=== PATIENT | male | born 2000 | race Caucasian/White ===

== ENCOUNTER 2021-06-25 16:56 | Inpatient (IN) ==
[2021-06-25] MEDS ORDERED: Piperacillin/Tazobac ADVAN 3.375 GM in NS 0.9% 100 ml BAG 100 ML IV ONE (17:07)
[2021-06-25] MEDS ORDERED: Vancomycin 1,000 MG in NS 0.9% 250 ml 250 ML IVPB ONE (17:07)
[2021-06-25] MEDS ORDERED: Ondansetron 4 mg VIAL 2 MG/ML 2 ml VIAL IV PRN (17:46)
[2021-06-25] MEDS ORDERED: Vancomycin per Pharmacy 1 EA NOTE FOLLOW UP SCH (18:00)
[2021-06-25 18:05] LABS: Hematocrit 39 % (42-52); Hemoglobin 13.6 g/dL (14.0-18.0); Mean Corpuscular HGB Conc 35 g/dL (31-36); Mean Corpuscular Hemoglobin 31 pg (27-31); Mean Corpuscular Volume 89 fL (80-94); Mean Platelet Volume 8.2 fL (7.4-10.4); Platelet Count 190 10^3/uL (150-450); Red Blood Count 4.46 10^6 /uL (4.18-5.48); Red Cell Distribution Width 14 % (10-15); White Blood Count 20.4 10^3/uL (3.5-10.8)
[2021-06-25 18:25] LABS: Activated Partial Thrombo Time 31.6 seconds (26.0-38.0); INR 1.5 (0.86-1.15)
[2021-06-25 18:38] LABS: Albumin 3.9 g/dL (3.2-5.2); Albumin/Globulin Ratio 1.1 (1-3); C Reactive Protein 124.7 mg/L (<8.01); Calcium 8.9 mg/dL (8.6-10.3); Globulin 3.4 g/dL (2-4); Potassium 3.4 mmol/L (3.5-5.0); Total Bilirubin 0.9 mg/dL (0.2-1.0); Total Protein 7.3 g/dL (6.4-8.9); eGFR CKD-EPI 131.4 (>60)
[2021-06-25 18:39] LABS: ABS Basophils 0.1 10^3/ul (0-0.2); ABS Lymphocytes 1.4 10^3/ul (1.0-4.8); ABS Monocytes 2.4 10^3/ul (0-0.8); ABS Neutrophils 16.6 10^3/ul (1.5-7.7); Eosinophil % 0.1 %; Lymphocyte % 6.9 %; Macrocytosis 1+; Microcytosis 1+; Toxic Granulation 1+
[2021-06-25 19:13] LABS: TSH Ultra Thyroid Stim Horm 1.28 mcIU/mL (0.34-5.60)
[2021-06-25 19:26] LABS: High Sensitivity Troponin 1 Hr 5 pg/mL (<20)
[2021-06-25 20:10] LABS: HIV 4th Generation Nonreactive (Nonreactive)
[2021-06-25] MEDS: Nicotine GUM 4MG FRUIT FLAVOR PO PRN (20:48)
[2021-06-25] MEDS: Lactated Ringers 1000 ml BAG 1,000 ML IV SCH (21:44)
[2021-06-25] MEDS: KCL 20 MEQ/100 ML IVPREMIX 20 MEQ/100 ML BAG IV SCH (22:18)
[2021-06-26] MEDS: KCL 20 MEQ/100 ML IVPREMIX 20 MEQ/100 ML BAG IV SCH ×2 (00:31→06:31)
[2021-06-26 00:46] LABS: Urine Appearance Clear; Urine Bilirubin Negative (Negative); Urine Blood 2+ (Negative); Urine Color Yellow; Urine Glucose Negative (Negative); Urine Ketones Negative (Negative); Urine Nitrite Negative (Negative); Urine Protein Negative (Negative); Urine Specific Gravity 1.014 (1.002-1.030); Urine Urobilinogen Positive (Negative)
[2021-06-26 01:09] LABS: Urine Bacteria Absent (Absent); Urine Red Blood Cell 3+(>10/hpf) (Absent); Urine White Blood Cell Trace(0-5/hpf) (Absent)
[2021-06-26 03:40] LABS: Hepatitis C Antibody Reactive (Negative)
[2021-06-26] MEDS: Vancomycin 1,250 MG in NS 0.9% 250 ml 250 ML IVPB SCH ×3 (04:03→22:06)
[2021-06-26 04:50] LABS: ABS Basophils 0.1 10^3/ul (0-0.2); ABS Eosinophils 0.2 10^3/ul (0-0.6); ABS Lymphocytes 2.4 10^3/ul (1.0-4.8); ABS Monocytes 1.5 10^3/ul (0-0.8); ABS Neutrophils 10.4 10^3/ul (1.5-7.7); Eosinophil % 1.3 %; Hematocrit 39 % (42-52); Hemoglobin 13.3 g/dL (14.0-18.0); Lymphocyte % 16.4 %; Mean Corpuscular HGB Conc 34 g/dL (31-36); Mean Corpuscular Hemoglobin 31 pg (27-31); Mean Corpuscular Volume 89 fL (80-94); Mean Platelet Volume 8.4 fL (7.4-10.4); Platelet Count 167 10^3/uL (150-450); Red Blood Count 4.37 10^6 /uL (4.18-5.48); Red Cell Distribution Width 14 % (10-15); White Blood Count 14.5 10^3/uL (3.5-10.8)
[2021-06-26] MEDS: Nicotine GUM 4MG FRUIT FLAVOR PO PRN (05:07)
[2021-06-26 05:09] LABS: Albumin 3.4 g/dL (3.2-5.2); Albumin/Globulin Ratio 1.1 (1-3); Calcium 8.5 mg/dL (8.6-10.3); Potassium 3.7 mmol/L (3.5-5.0); Total Bilirubin 0.6 mg/dL (0.2-1.0); Total Protein 6.4 g/dL (6.4-8.9)
[2021-06-26] MEDS: KCL 20 MEQ/100 ML IVPREMIX 20 MEQ/100 ML BAG ONE ×2 (06:22→06:32)
[2021-06-26] MEDS: Nicotine PATCH 21 MG/24 HR PATCH TRANSDERM SCH ×2 (08:04→08:05)
[2021-06-26] MEDS: Lactated Ringers 1000 ml BAG 1,000 ML IV SCH (08:08)
[2021-06-26] MEDS: Nicotine GUM 2MG FRUIT FLAVOR PO PRN (08:08)
[2021-06-26 12:04] LABS: Hepatitis B Surface Antigen Nonreactive (Nonreactive)
[2021-06-26] MEDS ORDERED: Vancomycin Trough Check NOTE FOLLOW UP ONE (18:00)
[2021-06-26] MEDS: Vancomycin 1000 MG in NS 0.9% 250 ML IVPB SCH (21:11)
[2021-06-27] MEDS: Vancomycin 1000 MG in NS 0.9% 250 ML IVPB SCH ×4 (02:30→20:03)
[2021-06-27 06:20] LABS: ABS Basophils 0.1 10^3/ul (0-0.2); ABS Eosinophils 0.6 10^3/ul (0-0.6); ABS Lymphocytes 3.2 10^3/ul (1.0-4.8); ABS Monocytes 1.5 10^3/ul (0-0.8); ABS Neutrophils 7.1 10^3/ul (1.5-7.7); Eosinophil % 4.5 %; Hematocrit 38 % (42-52); Hemoglobin 13.2 g/dL (14.0-18.0); Lymphocyte % 25.9 %; Mean Corpuscular HGB Conc 35 g/dL (31-36); Mean Corpuscular Hemoglobin 31 pg (27-31); Mean Corpuscular Volume 88 fL (80-94); Mean Platelet Volume 7.8 fL (7.4-10.4); Nucleated Red Blood Cells % 0.1; Platelet Count 244 10^3/uL (150-450); Red Blood Count 4.34 10^6 /uL (4.18-5.48); Red Cell Distribution Width 14 % (10-15); White Blood Count 12.4 10^3/uL (3.5-10.8)
[2021-06-27 06:50] LABS: Calcium 8.7 mg/dL (8.6-10.3); Potassium 4.5 mmol/L (3.5-5.0); eGFR CKD-EPI 143.2 (>60)
[2021-06-27] MEDS: Nicotine GUM 2MG FRUIT FLAVOR PO PRN ×3 (07:40→14:24)
[2021-06-27] MEDS: Nicotine PATCH 21 MG/24 HR PATCH TRANSDERM SCH (07:43)
[2021-06-27] MEDS ORDERED: Vancomycin Trough Check NOTE FOLLOW UP ONE (13:30)
[2021-06-28] MEDS: Vancomycin 1000 MG in NS 0.9% 250 ML IVPB SCH ×4 (02:23→19:58)
[2021-06-28] MEDS: Nicotine GUM 4MG FRUIT FLAVOR PO PRN ×4 (02:29→23:46)
[2021-06-28 06:27] LABS: Hematocrit 40 % (42-52); Mean Corpuscular HGB Conc 35 g/dL (31-36); Mean Corpuscular Hemoglobin 31 pg (27-31); Mean Corpuscular Volume 88 fL (80-94); Mean Platelet Volume 7.5 fL (7.4-10.4); Platelet Count 326 10^3/uL (150-450); Red Blood Count 4.58 10^6 /uL (4.18-5.48); Red Cell Distribution Width 14 % (10-15); White Blood Count 14.4 10^3/uL (3.5-10.8)
[2021-06-28 07:44] LABS: ABS Basophils 0.1 10^3/ul (0-0.2); ABS Eosinophils 0.4 10^3/ul (0-0.6); ABS Monocytes 1.6 10^3/ul (0-0.8); ABS Neutrophils 9.3 10^3/ul (1.5-7.7); Eosinophil % 3.1 %; Lymphocyte % 20.5 %; Nucleated Red Blood Cells % 0.1; RBC Morphology Normal (Normal)
[2021-06-28] MEDS: Nicotine PATCH 21 MG/24 HR PATCH TRANSDERM SCH (08:30)
[2021-06-28] MEDS ORDERED: Iohexol 300 (CONTRAST) 10 ML SDV IV ONE (13:46)
[2021-06-29] MEDS: Vancomycin 1000 MG in NS 0.9% 250 ML IVPB SCH ×4 (02:40→19:45)
[2021-06-29] MEDS: Nicotine GUM 4MG FRUIT FLAVOR PO PRN (02:44)
[2021-06-29 05:43] LABS: ABS Basophils 0.1 10^3/ul (0-0.2); ABS Eosinophils 0.6 10^3/ul (0-0.6); ABS Lymphocytes 2.8 10^3/ul (1.0-4.8); ABS Monocytes 1.3 10^3/ul (0-0.8); ABS Neutrophils 6.4 10^3/ul (1.5-7.7); Eosinophil % 5.2 %; Hematocrit 41 % (42-52); Hemoglobin 14.2 g/dL (14.0-18.0); Lymphocyte % 24.9 %; Mean Corpuscular HGB Conc 34 g/dL (31-36); Mean Corpuscular Hemoglobin 30 pg (27-31); Mean Corpuscular Volume 88 fL (80-94); Mean Platelet Volume 7.5 fL (7.4-10.4); Platelet Count 376 10^3/uL (150-450); Red Blood Count 4.68 10^6 /uL (4.18-5.48); Red Cell Distribution Width 14 % (10-15); White Blood Count 11.1 10^3/uL (3.5-10.8)
[2021-06-29 05:58] LABS: Potassium 4.9 mmol/L (3.5-5.0); eGFR CKD-EPI 136.5 (>60)
[2021-06-29] MEDS: Nicotine GUM 2MG FRUIT FLAVOR PO PRN (08:54)
[2021-06-29] MEDS: Nicotine PATCH 21 MG/24 HR PATCH TRANSDERM SCH (08:55)
[2021-06-29 09:29] LABS: ActiTest Interpretation minimal activity; Alanine Aminotransferase (ALT) 78 U/L (7-55); Alpha-2-Macroglobulin, S 194 mg/dL (100 - 280); Apolipoprotein A1, S 49 mg/dL (>=120); Bilirubin, Total, S 0.4 mg/dL (<=1.2); BioPredictive Serial Number 3776826; FibroTest Interpretation no fibrosis; Gamma Glutamyltransferase GGT 17 U/L (8 - 61); Haptoglobin, S 213 mg/dL (30 - 200)
[2021-06-29] MEDS ORDERED: Lidocaine 2% PF 5 ML VIAL ONE (13:56)
[2021-06-30] MEDS: Vancomycin 1000 MG in NS 0.9% 250 ML IVPB SCH ×2 (01:07→09:11)
[2021-06-30] MEDS: Nicotine GUM 4MG FRUIT FLAVOR PO PRN ×5 (01:07→20:21)
[2021-06-30] MEDS ORDERED: Vancomycin Trough Check NOTE FOLLOW UP ONE (07:30)
[2021-06-30] MEDS: Nicotine PATCH 21 MG/24 HR PATCH TRANSDERM SCH (07:35)
[2021-06-30 08:40] LABS: Vancomycin Trough 15.5 mcg/mL; eGFR CKD-EPI 123.7 (>60)
[2021-06-30] MEDS: Vancomycin 1,250 MG in NS 0.9% 250 ml 250 ML IVPB SCH (17:25)
[2021-06-30 17:54] LABS: Hepatitis C Genotype 1a (Undetected)
[2021-07-01] MEDS: Vancomycin 1,250 MG in NS 0.9% 250 ml 250 ML IVPB SCH ×2 (02:01→10:32)
[2021-07-01 06:12] LABS: Hematocrit 39 % (42-52); Hemoglobin 13.6 g/dL (14.0-18.0); Mean Corpuscular HGB Conc 35 g/dL (31-36); Mean Corpuscular Hemoglobin 31 pg (27-31); Mean Corpuscular Volume 88 fL (80-94); Mean Platelet Volume 6.7 fL (7.4-10.4); Platelet Count 436 10^3/uL (150-450); Red Blood Count 4.45 10^6 /uL (4.18-5.48); Red Cell Distribution Width 14 % (10-15); White Blood Count 12.8 10^3/uL (3.5-10.8)
[2021-07-01 06:45] LABS: Calcium 9.2 mg/dL (8.6-10.3); Potassium 4.9 mmol/L (3.5-5.0); eGFR CKD-EPI 132.5 (>60)
[2021-07-01 09:22] LABS: C Reactive Protein 7.67 mg/L (<8.01)
[2021-07-01] MEDS: Nicotine PATCH 21 MG/24 HR PATCH TRANSDERM SCH (09:32)
[2021-07-01] MEDS: Nicotine GUM 4MG FRUIT FLAVOR PO PRN (10:20)
[2021-07-01] MEDS ORDERED: DALBAVANCIN HCL (NF) 1,000 MG in D5W 250 ml BAG 250 ML IVPB ONE (14:00)
[2021-07-01] MEDS ORDERED: DALBAVANCIN HCL (NF) 500 MG/25 ML VIAL IVPB SCH (14:00)
[2021-07-01 14:10] VITALS: BP 138/74
[2021-07-02] MEDS ORDERED: Vancomycin Trough Check NOTE FOLLOW UP ONE (09:30)
== END 2021-07-01 15:00 | disposition left against medical advice (07) | DRG 720 ==
LOC: ED 16:56 → SUATTDRO 20:20 → EDHOLD 20:20 → MEDTELE 21:37
PROVIDERS: ADMIT Pediatrics; ATTEND Internal Medicine
PROC: O.CATEE (2021-06-29 14:00)